=== PATIENT | male | born 1935 | race African-American/Black ===

== ENCOUNTER 2019-01-08 22:34 | Emergency (ER) | payer MEDICARE, BC ==
[~2019-01-08] VITALS: Ht 177.8 cm; Wt 77.0 kg
[2019-01-09] MEDS: HYDROCODONE/ACETAMINOPHEN 5/325MG TABLET PO ONE (00:59)
[2019-01-09 01:04] LABS: BASOPHILS % 0.9 % (0.0-2.0); EOSINOPHILS % 2.9 % (0.0-5.0); HEMATOCRIT. 39.7 % (42.0-52.0); HEMOGLOBIN. 13.1 g/dL (14.0-18.0); LYMPHOCYTES % 37.3 % (20.0-50.0); MEAN CORPUSCULAR HEMOGLOBIN 28.2 pg (28.0-32.0); MEAN CORPUSCULAR VOLUME 85.8 fL (80.0-94.0); MEAN PLATELET VOLUME 8.2 fl (7.4-10.4); MONOCYTES % 9.2 % (2.0-8.0); NEUTROPHILS % 49.7 % (40.0-76.0); PLATELET 149 x1000/uL (130-400); RED BLOOD CELL COUNT 4.63 mill/uL (4.7-6.1); RED CELL DISTRIBUTION WIDTH 14.6 % (11.6-14.6)
[2019-01-09 01:07] LABS: CHLORIDE 108 mEq/L (98-107)
[2019-01-09 01:11] LABS: PARTIAL THROMBOPLASTIN TIME 26.6 sec (23.4-31.0); PROTHROMBIN TIME 10.7 sec (9.6-11.0)
[2019-01-09 02:38] VITALS: BP 166/92
== END 2019-01-09 02:39 | disposition home or self-care (01) ==
LOC: ER 22:34
DX: R51 Headache (principal); M54.2 Cervicalgia; M54.9 Dorsalgia, unspecified; V49.49XA Driver injured in collision with other motor vehicles in traffic accident, initial encounter; Y93.89 Activity, other specified; Y92.89 Other specified places as the place of occurrence of the external cause; Y99.8 Other external cause status; E78.00 Pure hypercholesterolemia, unspecified; Z88.6 Allergy status to analgesic agent; Z88.1 Allergy status to other antibiotic agents
CPT/HCPCS: 36415; 71045; 72040; 72070; 72100; 72170; 82962; 86850; 86900; 99284

== ENCOUNTER 2019-03-17 22:15 | Emergency (ER) | payer MEDICARE, BC ==
[~2019-03-17] VITALS: Ht 180.3 cm; Wt 64.0 kg
[2019-03-17] MEDS ORDERED: SODIUM CHLORIDE 0.9% 1,000 ML IV ONE (22:49)
[2019-03-17 23:23] LABS: BASOPHILS % 0.5 % (0.0-2.0); EOSINOPHILS % 2.3 % (0.0-5.0); HEMATOCRIT. 41.3 % (42.0-52.0); HEMOGLOBIN. 13.6 g/dL (14.0-18.0); MEAN CORPUSCULAR HEMOGLOBIN 28.4 pg (28.0-32.0); MEAN CORPUSCULAR VOLUME 86.4 fL (80.0-94.0); MEAN PLATELET VOLUME 8.1 fl (7.4-10.4); MONOCYTES % 8.8 % (2.0-8.0); NEUTROPHILS % 69.4 % (40.0-76.0); PLATELET 150 x1000/uL (130-400); RED BLOOD CELL COUNT 4.78 mill/uL (4.7-6.1); RED CELL DISTRIBUTION WIDTH 14.9 % (11.6-14.6)
[2019-03-17 23:29] LABS: CHLORIDE 108 mEq/L (98-107)
[2019-03-18 05:26] VITALS: BP 155/86
== END 2019-03-18 05:27 | disposition home or self-care (01) ==
LOC: ER 22:15
DX: R42 Dizziness and giddiness (principal); R03.0 Elevated blood-pressure reading, without diagnosis of hypertension; Z95.0 Presence of cardiac pacemaker
CPT/HCPCS: 36415; 80053; 84484; 85025; 93005; 96360; 96361; 99284; J7030

== ENCOUNTER 2023-09-08 00:54 | Emergency (ER) | payer MEDICARE, BC ==
[~2023-09-08] VITALS: Ht 177.8 cm; Wt 8.0 kg
[~2023-09-08 00:54] MED LIST: AMLO5TAB88 PO; ASPI-1406 PO; LOVA20TA2 PO; MECL-217 PO
[2023-09-08 01:01] VITALS: BP 157/82; PULSE 60; RESP 16; TEMP 98.1; O2SAT 98
[2023-09-08 01:55] LABS: HEMATOCRIT 40.1 % (42.0-52.0); HEMOGLOBIN 13.2 g/dL (14.0-18.0); MEAN CORPUSCULAR HEMOGLOBIN 28.8 pg (28.0-32.0); MEAN CORPUSCULAR HGB CONC 32.9 g/dL (31.0-37.0); MEAN CORPUSCULAR VOLUME 87.6 fL (80.0-94.0); PLATELET 167 x1000/uL (130-400); RED BLOOD CELL COUNT 4.58 mill/uL (4.7-6.1); RED CELL DISTRIBUTION WIDTH 14.9 % (11.6-14.6); WHITE BLOOD COUNT 3.8 x1000/uL (4.5-11.0)
[2023-09-08 02:12] LABS: ALANINE AMINOTRANSFERASE 24 IU/L (10-49); ALBUMIN 4.2 g/dL (3.2-4.8); ASPARTATE AMINOTRANSFERASE 32 IU/L (<34); BILIRUBIN TOTAL 0.6 mg/dL (0.1-1.0); CARBON DIOXIDE 26 mEq/L (21-32); CHLORIDE 108 mEq/L (98-107); CREATININE 1.3 mg/dL (0.6-1.3); GLUCOSE 108 mg/dL (70-105); POTASSIUM 4.1 mEq/L (3.5-5.1); PROTEIN TOTAL 7.1 g/dL (6.0-8.3); SODIUM 141 mEq/L (136-145); UREA NITROGEN BLOOD 18 mg/dL (9-23)
== END 2023-09-08 06:13 | disposition left against medical advice (07) ==
LOC: ER 00:54
DX: R10.9 Unspecified abdominal pain (principal); Z53.21 Procedure and treatment not carried out due to patient leaving prior to being seen by health care provider
CPT/HCPCS: 36415; 80053; 85027; 99281

== ENCOUNTER → 2023-09-11 | Outpatient (CLI) | payer MEDICARE, BC ==
[~2023-09-11] MED LIST changes: +IOHEXOL-300 100 ML BOTTLE ONE
== END | disposition home or self-care (01) ==
LOC: CT 09:39
PROVIDERS: ATTEND Internal Medicine Rheumatology
DX: N20.0 Calculus of kidney (principal); I51.7 Cardiomegaly; K80.20 Calculus of gallbladder without cholecystitis without obstruction; K57.92 Diverticulitis of intestine, part unspecified, without perforation or abscess without bleeding; K43.2 Incisional hernia without obstruction or gangrene; M16.0 Bilateral primary osteoarthritis of hip; I70.0 Atherosclerosis of aorta; M47.816 Spondylosis without myelopathy or radiculopathy, lumbar region; N13.30 Unspecified hydronephrosis
CPT/HCPCS: 74177; Q9967

== ENCOUNTER → 2023-10-09 | Outpatient (CLI) | payer MEDICARE, BC ==
[~2023-10-09] MED LIST changes: -IOHEXOL-300 100 ML BOTTLE ONE
[2023-10-09 11:47] LABS: EOSINOPHILS % 1.9 % (0.0-5.0); HEMATOCRIT. 43.4 % (42.0-52.0); HEMOGLOBIN. 14.3 g/dL (14.0-18.0); LYMPHOCYTES % 41.1 % (20.0-50.0); MEAN CORPUSCULAR HEMOGLOBIN 28.2 pg (28.0-32.0); MEAN CORPUSCULAR VOLUME 85.4 fL (80.0-94.0); MEAN PLATELET VOLUME 7.9 fl (7.4-10.4); MONOCYTES % 10.1 % (2.0-8.0); NEUTROPHILS % 45.9 % (40.0-76.0); PLATELET 191 x1000/uL (130-400); RED BLOOD CELL COUNT 5.08 mill/uL (4.7-6.1); RED CELL DISTRIBUTION WIDTH 14.6 % (11.6-14.6); WHITE BLOOD COUNT 3.6 x1000/uL (4.5-11.0)
[2023-10-09 11:55] LABS: INR 0.9; PROTHROMBIN TIME 10.5 sec (9.6-11.0)
[2023-10-09 11:57] LABS: CHLORIDE 107 mEq/L (98-107); POTASSIUM 4.6 mEq/L (3.5-5.1); SODIUM 140 mEq/L (136-145)
[2023-10-09 11:58] LABS: CARBON DIOXIDE 28 mEq/L (21-32)
[2023-10-09 11:59] LABS: CALCIUM 9.7 mg/dL (8.7-10.4)
[2023-10-09 12:03] LABS: CREATININE 1.2 mg/dL (0.6-1.3); GLUCOSE 93 mg/dL (70-105)
[2023-10-09 12:04] LABS: UREA NITROGEN BLOOD 18 mg/dL (9-23)
== END | disposition home or self-care (01) ==
LOC: LAB 11:00
PROVIDERS: ATTEND Internal Medicine Clinical Cardiac Electrophysiology
DX: I49.5 Sick sinus syndrome (principal); I49.2 Junctional premature depolarization; Z95.0 Presence of cardiac pacemaker
CPT/HCPCS: 36415; 80048; 85025